=== PATIENT | male | born 1950 | race Caucasian/White ===

== ENCOUNTER → 2018-01-16 | Outpatient (CLI) | payer MEDICARE, BC ==
[2018-01-16 11:30] LABS: BLOOD UREA NITROGEN 38 mg/dl (7-20)
[2018-01-16 11:30] LABS: CREATININE 1.51 mg/dl (0.61-1.24)
[2018-01-16] MEDS: IODIXANOL LOCM 100 ML BTL (12:17)
[2018-01-16] MEDS: SOD CHLORIDE 0.9% 100 ML (12:17)
== END | disposition home or self-care (01) ==
LOC: LAB 09:34
DX: R10.9 Unspecified abdominal pain (principal)
CPT/HCPCS: 74178; 82565; 84520

== ENCOUNTER 2018-05-28 18:59 | Inpatient (IN) | payer MEDICARE, BC ==
[2018-05-28] MEDS: morphine 4 MG/ML VIAL IV ×2 (22:14→22:41)
[2018-05-28] MEDS: ONDANSETRON 4 MG INJ IV ×2 (22:14→22:41)
[2018-05-28] MEDS: SOD CHLORIDE 0.9% 1,000 ML IV (22:15)
[2018-05-28 23:20] LABS: ADD MAN DIFF? NO
[2018-05-28 23:30] LABS: WHITE BLOOD COUNT 15.7 10^3/ul (4.8-10.8)
[2018-05-28 23:30] LABS: BASOPHIL # 0.1 10^3/ul (0.0-0.1); BASOPHILS % 0.4 % (0.0-2.0); EOSINOPHILS # 0.8 10^3/ul (0.0-0.5); EOSINOPHILS % 5.4 % (0.0-7.0); HEMATOCRIT 48.4 % (42.0-52.0); HEMOGLOBIN 16.2 g/dl (14.0-18.0); LYMPHOCYTES # 1.6 10^3/ul (0.8-2.9); LYMPHOCYTES % 10.4 % (15.0-51.0); MEAN CORPUSCULAR HEMOGLOBIN 32.2 pg (29.0-33.0); MEAN CORPUSCULAR HGB CONC 33.5 g/dl (32.0-37.0); MEAN CORPUSCULAR VOLUME 96.2 fl (82.0-101.0); MEAN PLATELET VOLUME 10.7 fl (7.4-10.4); MONOCYTE # 1.2 10^3/ul (0.3-0.9); MONOCYTES % 7.5 % (0.0-11.0); NEUTROPHIL # 11.8 10^3/ul (1.6-7.5); NEUTROPHILS % 75.5 % (39.0-77.0); PLATELET COUNT 149 10^3/UL (140-415); RED BLOOD COUNT 5.03 10^6/ul (4.70-6.10); RED CELL DISTRIBUTION WIDTH 12.8 % (11.5-14.5)
[2018-05-28 23:45] LABS: LACTIC ACID 1.4 mmol/L (0.5-2.0)
[2018-05-28 23:47] LABS: ALANINE AMINOTRANSFERASE 31 IU/L (13-69); ALBUMIN 3.1 g/dl (3.3-4.9); ALBUMIN/GLOBULIN RATIO 0.81; ALKALINE PHOSPHATASE 121 IU/L (42-121); ANION GAP 15 (8-16); ASPARTATE AMINO TRANSFERASE 22 IU/L (15-46); BILIRUBIN,INDIRECT 0.5 mg/dl (0-1.1); BILIRUBIN,TOTAL 0.5 mg/dl (0.2-1.3); BLOOD UREA NITROGEN 40 mg/dl (7-20); CARBON DIOXIDE 24 mmol/L (21-31); CHLORIDE 103 mmol/L (97-110); CREATININE 1.75 mg/dl (0.61-1.24); GLUCOSE 131 mg/dl (70-220); LIPASE 63 U/L (23-300); POTASSIUM 4.3 mmol/L (3.5-5.1); SODIUM 138 mmol/L (135-144); TOTAL PROTEIN 6.9 g/dl (6.1-8.1)
[2018-05-29] LABS: TROPONIN-I < 0.012 ng/ml (0.000-0.120)
[2018-05-29 00:49] LABS: ADD UMIC YES; UR ASCORBIC ACID NEGATIVE (NEGATIVE); UR BACTERIA MODERATE /HPF (NONE SEEN); UR BILIRUBIN (Dip) NEGATIVE (NEGATIVE); UR BLOOD (Dip) 3+ mg/dL (NEGATIVE); UR CLARITY TURBID (CLEAR); UR COLOR YELLOW (YELLOW); UR GLUCOSE (Dip) 3+ mg/dL (NEGATIVE); UR KETONES (Dip) TRACE mg/dL (NEGATIVE); UR LEUKOCYTE ESTERASE (Dip) 2+ Leu/ul (NEGATIVE); UR NITRITE (Dip) NEGATIVE (NEGATIVE); UR NONSQUAMOUS EPITHELIAL CELL 2 /HPF (NONE SEEN); UR RBC > 182 /HPF (0-5); UR SPECIFIC GRAVITY (Dip) 1.018 (1.003-1.030); UR SQUAMOUS EPITHELIAL CELL FEW /HPF (FEW); UR TOTAL PROTEIN (Dip) 2+ mg/dl (NEGATIVE); UR UROBILINOGEN (Dip) NEGATIVE (NEGATIVE); UR WBC > 182 /HPF (0-5)
[2018-05-29] MEDS ORDERED: NACL 0.9% 3 ML SYG IV (02:00)
[2018-05-29] MEDS ORDERED: ACETAMINOPHEN 325 MG TAB PO (02:00)
[2018-05-29] MEDS ORDERED: BISACODYL (EC) 5 MG TAB PO (02:00)
[2018-05-29] MEDS: ACCU-CHEK XX (02:00)
[2018-05-29] MEDS ORDERED: DOCUSATE SODIUM 100 MG CAP PO (02:00)
[2018-05-29] MEDS ORDERED: GLUCOSE GEL 15 GRAM TUBE BUCCAL (02:30)
[2018-05-29] MEDS ORDERED: GLUCOSE GEL 15 GRAM TUBE PO ×2 (02:30)
[2018-05-29] MEDS ORDERED: GLUCAGON 1 MG INJ IM (02:30)
[2018-05-29] MEDS ORDERED: DEXTROSE 50% 50 ML SYRINGE IV ×2 (02:30)
[2018-05-29] MEDS: CEFTRIAXONE 2 GM/50 ML (PMX) 50 ML IVPB (03:01)
[2018-05-29] MEDS ORDERED: ALBUTEROL HFA 8 GM INHALER INH (04:00)
[2018-05-29 05:58] LABS: ADD MAN DIFF? NO
[2018-05-29 06:38] LABS: ALANINE AMINOTRANSFERASE 29 IU/L (13-69); ALBUMIN 3.1 g/dl (3.3-4.9); ALBUMIN/GLOBULIN RATIO 0.83; ALKALINE PHOSPHATASE 114 IU/L (42-121); ANION GAP 13 (8-16); ASPARTATE AMINO TRANSFERASE 24 IU/L (15-46); BILIRUBIN,INDIRECT 0.4 mg/dl (0-1.1); BILIRUBIN,TOTAL 0.4 mg/dl (0.2-1.3); BLOOD UREA NITROGEN 37 mg/dl (7-20); CARBON DIOXIDE 26 mmol/L (21-31); CHLORIDE 107 mmol/L (97-110); CHOL/HDL RATIO 3.7 RATIO; CHOLESTEROL 111 mg/dl (100-200); CREATININE 1.51 mg/dl (0.61-1.24); HDL CHOLESTEROL 30 mg/dl (31-75); LDL CHOLESTEROL,CALCULATED 64 mg/dl; MAGNESIUM 2.3 mg/dl (1.7-2.5); POTASSIUM 4.4 mmol/L (3.5-5.1); SODIUM 142 mmol/L (135-144); TOTAL PROTEIN 6.8 g/dl (6.1-8.1); TRIGLYCERIDES 85 mg/dl (0-149)
[2018-05-29 07:08] LABS: GLUCOSE 38 mg/dl (70-220)
[2018-05-29] MEDS: INSULIN ASPART [NOVOLOG] 3 ML PEN SC ×4 (07:21→21:00)
[2018-05-29 08:28] LABS: BASOPHIL # 0.1 10^3/ul (0.0-0.1); BASOPHILS % 0.4 % (0.0-2.0); EOSINOPHILS % 6.6 % (0.0-7.0); HEMATOCRIT 48.9 % (42.0-52.0); HEMOGLOBIN 15.9 g/dl (14.0-18.0); LYMPHOCYTES # 2.5 10^3/ul (0.8-2.9); LYMPHOCYTES % 16.7 % (15.0-51.0); MEAN CORPUSCULAR HEMOGLOBIN 31.2 pg (29.0-33.0); MEAN CORPUSCULAR HGB CONC 32.5 g/dl (32.0-37.0); MEAN CORPUSCULAR VOLUME 96.1 fl (82.0-101.0); MONOCYTE # 1.3 10^3/ul (0.3-0.9); MONOCYTES % 8.5 % (0.0-11.0); NEUTROPHIL # 10.2 10^3/ul (1.6-7.5); NEUTROPHILS % 67.3 % (39.0-77.0); PLATELET COUNT 149 10^3/UL (140-415); RED BLOOD COUNT 5.09 10^6/ul (4.70-6.10); RED CELL DISTRIBUTION WIDTH 12.8 % (11.5-14.5)
[2018-05-29 08:28] LABS: WHITE BLOOD COUNT 15.1 10^3/ul (4.8-10.8)
[2018-05-29] MEDS: BENAZEPRIL 40 MG TAB PO (08:42)
[2018-05-29] MEDS: INSULIN GLARGINE [LANTus] (100 UNITS/ML) SYG SC (08:44)
[2018-05-29 11:50] LABS: HEMOGLOBIN A1C 7.9 % (0-5.9)
[2018-05-29] MEDS: SOD CHLORIDE 0.9% 1,000 ML IV (16:51)
[2018-05-29] MEDS: AMITRIPTYLINE 25 MG TAB PO (21:00)
[2018-05-29] MEDS: MONTELUKAST 10 MG TAB PO (21:24)
[2018-05-29] MEDS: ATORVASTATIN 10 MG TAB PO (21:25)
[2018-05-30] MEDS: ACCU-CHEK XX (02:00)
[2018-05-30] MEDS: CEFTRIAXONE 2 GM/50 ML (PMX) 50 ML IVPB ×2 (02:46→21:18)
[2018-05-30] MEDS: INSULIN ASPART [NOVOLOG] 3 ML PEN SC ×4 (07:57→21:43)
[2018-05-30] MEDS: BENAZEPRIL 40 MG TAB PO (09:13)
[2018-05-30] MEDS: INSULIN GLARGINE [LANTus] (100 UNITS/ML) SYG SC (09:38)
[2018-05-30 10:16] LABS: ADD MAN DIFF? NO
[2018-05-30 10:22] LABS: WHITE BLOOD COUNT 13.7 10^3/ul (4.8-10.8)
[2018-05-30 10:22] LABS: BASOPHIL # 0.1 10^3/ul (0.0-0.1); BASOPHILS % 0.4 % (0.0-2.0); HEMATOCRIT 45.8 % (42.0-52.0); LYMPHOCYTES # 1.8 10^3/ul (0.8-2.9); LYMPHOCYTES % 12.9 % (15.0-51.0); MEAN CORPUSCULAR HEMOGLOBIN 31.6 pg (29.0-33.0); MEAN CORPUSCULAR HGB CONC 32.8 g/dl (32.0-37.0); MEAN CORPUSCULAR VOLUME 96.6 fl (82.0-101.0); MEAN PLATELET VOLUME 10.4 fl (7.4-10.4); MONOCYTE # 1.2 10^3/ul (0.3-0.9); MONOCYTES % 8.4 % (0.0-11.0); NEUTROPHIL # 9.7 10^3/ul (1.6-7.5); NEUTROPHILS % 70.8 % (39.0-77.0); PLATELET COUNT 157 10^3/UL (140-415); RED BLOOD COUNT 4.74 10^6/ul (4.70-6.10); RED CELL DISTRIBUTION WIDTH 12.6 % (11.5-14.5)
[2018-05-30 10:43] LABS: ANION GAP 13 (8-16); BLOOD UREA NITROGEN 35 mg/dl (7-20); CALCIUM 9.1 mg/dl (8.4-10.2); CARBON DIOXIDE 27 mmol/L (21-31); CHLORIDE 106 mmol/L (97-110); CREATININE 1.42 mg/dl (0.61-1.24); GLUCOSE 113 mg/dl (70-220); MAGNESIUM 2.1 mg/dl (1.7-2.5); SODIUM 141 mmol/L (135-144)
[2018-05-30] MEDS: ATORVASTATIN 10 MG TAB PO (21:18)
[2018-05-30] MEDS: MONTELUKAST 10 MG TAB PO (21:18)
[2018-05-30] MEDS: AMITRIPTYLINE 25 MG TAB PO (21:18)
[2018-05-31] MEDS: ACCU-CHEK XX (01:45)
[2018-05-31 05:39] LABS: ADD MAN DIFF? NO
[2018-05-31 05:47] LABS: BASOPHIL # 0.1 10^3/ul (0.0-0.1); BASOPHILS % 0.5 % (0.0-2.0); EOSINOPHILS # 1.2 10^3/ul (0.0-0.5); EOSINOPHILS % 10.2 % (0.0-7.0); HEMATOCRIT 45.4 % (42.0-52.0); HEMOGLOBIN 14.9 g/dl (14.0-18.0); LYMPHOCYTES # 1.6 10^3/ul (0.8-2.9); LYMPHOCYTES % 14.1 % (15.0-51.0); MEAN CORPUSCULAR HEMOGLOBIN 31.8 pg (29.0-33.0); MEAN CORPUSCULAR HGB CONC 32.8 g/dl (32.0-37.0); MEAN PLATELET VOLUME 10.4 fl (7.4-10.4); MONOCYTE # 0.9 10^3/ul (0.3-0.9); MONOCYTES % 7.8 % (0.0-11.0); NEUTROPHIL # 7.5 10^3/ul (1.6-7.5); NEUTROPHILS % 66.7 % (39.0-77.0); PLATELET COUNT 151 10^3/UL (140-415); RED BLOOD COUNT 4.68 10^6/ul (4.70-6.10); RED CELL DISTRIBUTION WIDTH 12.6 % (11.5-14.5)
[2018-05-31 05:47] LABS: WHITE BLOOD COUNT 11.3 10^3/ul (4.8-10.8)
[2018-05-31 06:04] LABS: ANION GAP 11 (8-16); BLOOD UREA NITROGEN 34 mg/dl (7-20); CALCIUM 9.1 mg/dl (8.4-10.2); CARBON DIOXIDE 28 mmol/L (21-31); CHLORIDE 106 mmol/L (97-110); CREATININE 1.35 mg/dl (0.61-1.24); GLUCOSE 166 mg/dl (70-220); POTASSIUM 4.9 mmol/L (3.5-5.1); SODIUM 140 mmol/L (135-144)
[2018-05-31] MEDS: INSULIN ASPART [NOVOLOG] 3 ML PEN SC ×4 (07:39→20:49)
[2018-05-31] MEDS: INSULIN GLARGINE [LANTus] (100 UNITS/ML) SYG SC (07:39)
[2018-05-31] MEDS: BENAZEPRIL 40 MG TAB PO (08:11)
[2018-05-31] MEDS: METOPROLOL 25 MG TAB PO ×2 (11:37→20:33)
[2018-05-31] MEDS ORDERED: DILTIAZEM 25 MG INJ IV (12:00)
[2018-05-31] MEDS: DIGOXIN 500 MCG INJ IV ×2 (12:21→17:04)
[2018-05-31] MEDS: NA PHOSPHATE/BIPHOS 133 ML ENEMA PR (14:30)
[2018-05-31 14:51] LABS: TROPONIN-I < 0.012 ng/ml (0.000-0.120)
[2018-05-31] MEDS: POLYETHYLENE GLYCOL 17 GM PACKET PO (14:52)
[2018-05-31] MEDS: PSYLLIUM 28% PACKET PO (15:30)
[2018-05-31 19:12] LABS: TROPONIN-I < 0.012 ng/ml (0.000-0.120)
[2018-05-31] MEDS: ATORVASTATIN 10 MG TAB PO (20:26)
[2018-05-31] MEDS: MONTELUKAST 10 MG TAB PO (20:26)
[2018-05-31] MEDS: DOCUSATE SODIUM 100 MG CAP PO (20:26)
[2018-05-31] MEDS: APIXABAN 5 MG TABLET PO (20:27)
[2018-05-31] MEDS: AMITRIPTYLINE 25 MG TAB PO (20:27)
[2018-05-31] MEDS ORDERED: DOCUSATE SODIUM 100 MG CAP PO (21:00)
[2018-05-31] MEDS: CEFTRIAXONE 2 GM/50 ML (PMX) 50 ML IVPB (22:44)
[2018-06-01] MEDS: ACCU-CHEK XX (02:36)
[2018-06-01 06:19] LABS: ANION GAP 12 (8-16); BLOOD UREA NITROGEN 39 mg/dl (7-20); CALCIUM 8.9 mg/dl (8.4-10.2); CARBON DIOXIDE 26 mmol/L (21-31); CHLORIDE 108 mmol/L (97-110); CREATININE 1.43 mg/dl (0.61-1.24); GLUCOSE 135 mg/dl (70-220); MAGNESIUM 2.2 mg/dl (1.7-2.5); POTASSIUM 4.8 mmol/L (3.5-5.1); SODIUM 141 mmol/L (135-144)
[2018-06-01] MEDS: INSULIN ASPART [NOVOLOG] 3 ML PEN SC ×4 (07:57→20:43)
[2018-06-01] MEDS: DOCUSATE SODIUM 100 MG CAP PO ×2 (08:25→21:00)
[2018-06-01] MEDS: METOPROLOL 25 MG TAB PO ×2 (08:25→20:17)
[2018-06-01] MEDS: APIXABAN 5 MG TABLET PO ×2 (08:25→20:16)
[2018-06-01] MEDS: BENAZEPRIL 10 MG TAB PO (08:26)
[2018-06-01] MEDS: POLYETHYLENE GLYCOL 17 GM PACKET PO (08:31)
[2018-06-01] MEDS: INSULIN GLARGINE [LANTus] (100 UNITS/ML) SYG SC (08:31)
[2018-06-01] MEDS: PSYLLIUM 28% PACKET PO (08:31)
[2018-06-01] MEDS: BISACODYL (EC) 5 MG TAB PO (09:28)
[2018-06-01] MEDS ORDERED: BISACODYL (EC) 5 MG TAB PO (09:30)
[2018-06-01] MEDS: LINAGLIPTIN 5 MG TABLET PO (10:00)
[2018-06-01] MEDS: FOSFOMYCIN 3 GM PACKET PO (11:30)
[2018-06-01] MEDS: AMITRIPTYLINE 25 MG TAB PO (20:16)
[2018-06-01] MEDS: MONTELUKAST 10 MG TAB PO (20:17)
[2018-06-01] MEDS: ATORVASTATIN 10 MG TAB PO (20:17)
[2018-06-01] MEDS: CEFTRIAXONE 2 GM/50 ML (PMX) 50 ML IVPB (23:12)
[2018-06-02] MEDS: ACCU-CHEK XX (02:13)
[2018-06-02 06:08] LABS: ADD MAN DIFF? NO
[2018-06-02 06:13] LABS: BASOPHIL # 0.1 10^3/ul (0.0-0.1); BASOPHILS % 0.6 % (0.0-2.0); EOSINOPHILS # 1.1 10^3/ul (0.0-0.5); EOSINOPHILS % 9.7 % (0.0-7.0); HEMATOCRIT 45.7 % (42.0-52.0); LYMPHOCYTES # 2.5 10^3/ul (0.8-2.9); LYMPHOCYTES % 21.8 % (15.0-51.0); MEAN CORPUSCULAR HEMOGLOBIN 31.6 pg (29.0-33.0); MEAN CORPUSCULAR HGB CONC 32.8 g/dl (32.0-37.0); MEAN CORPUSCULAR VOLUME 96.4 fl (82.0-101.0); MEAN PLATELET VOLUME 10.2 fl (7.4-10.4); MONOCYTES % 9.3 % (0.0-11.0); NEUTROPHIL # 6.4 10^3/ul (1.6-7.5); PLATELET COUNT 159 10^3/UL (140-415); RED BLOOD COUNT 4.74 10^6/ul (4.70-6.10); RED CELL DISTRIBUTION WIDTH 12.6 % (11.5-14.5)
[2018-06-02 06:13] LABS: WHITE BLOOD COUNT 11.2 10^3/ul (4.8-10.8)
[2018-06-02 06:50] LABS: ANION GAP 13 (8-16); BLOOD UREA NITROGEN 44 mg/dl (7-20); CALCIUM 8.9 mg/dl (8.4-10.2); CARBON DIOXIDE 27 mmol/L (21-31); CHLORIDE 106 mmol/L (97-110); CREATININE 1.71 mg/dl (0.61-1.24); GLUCOSE 126 mg/dl (70-220); POTASSIUM 5.2 mmol/L (3.5-5.1); SODIUM 141 mmol/L (135-144)
[2018-06-02] MEDS: INSULIN ASPART [NOVOLOG] 3 ML PEN SC ×4 (07:59→22:02)
[2018-06-02] MEDS: LINAGLIPTIN 5 MG TABLET PO (08:00)
[2018-06-02] MEDS: APIXABAN 5 MG TABLET PO ×2 (08:01→21:49)
[2018-06-02] MEDS: BENAZEPRIL 10 MG TAB PO (08:01)
[2018-06-02] MEDS: METOPROLOL 25 MG TAB PO ×2 (08:02→21:49)
[2018-06-02] MEDS: INSULIN GLARGINE [LANTus] (100 UNITS/ML) SYG SC (08:14)
[2018-06-02] MEDS: PSYLLIUM 28% PACKET PO (09:00)
[2018-06-02] MEDS: POLYETHYLENE GLYCOL 17 GM PACKET PO (09:00)
[2018-06-02] MEDS: BISACODYL (EC) 5 MG TAB PO (09:00)
[2018-06-02] MEDS: DOCUSATE SODIUM 100 MG CAP PO ×3 (09:00→21:49)
[2018-06-02] MEDS: LACTULOSE 30ML CUP PO (10:30)
[2018-06-02] MEDS: TERBINAFINE 250 MG TAB PO ×2 (11:37→21:49)
[2018-06-02] MEDS: LACTATED RINGER'S 500 ML IV (11:37)
[2018-06-02] MEDS: FLUTICASONE/VILANTEROL 200-25 INH DEVICE INH (12:17)
[2018-06-02] MEDS ORDERED: DESIPRAMINE 25 MG TAB PO (21:00)
[2018-06-02] MEDS: MONTELUKAST 10 MG TAB PO (21:49)
[2018-06-02] MEDS: ATORVASTATIN 40 MG TAB PO (21:49)
[2018-06-02] MEDS: CEFTRIAXONE 2 GM/50 ML (PMX) 50 ML IVPB (21:50)
[2018-06-02] MEDS: NORTRIPTYLINE 25 MG CAP PO (21:50)
[2018-06-03] MEDS: ACCU-CHEK XX (02:28)
[2018-06-03] MEDS: INSULIN ASPART [NOVOLOG] 3 ML PEN SC ×5 (03:55→22:01)
[2018-06-03 06:02] LABS: ADD MAN DIFF? NO
[2018-06-03 06:05] LABS: WHITE BLOOD COUNT 9.9 10^3/ul (4.8-10.8)
[2018-06-03 06:05] LABS: BASOPHIL # 0.1 10^3/ul (0.0-0.1); BASOPHILS % 0.6 % (0.0-2.0); EOSINOPHILS # 1.1 10^3/ul (0.0-0.5); HEMOGLOBIN 14.6 g/dl (14.0-18.0); LYMPHOCYTES # 2.3 10^3/ul (0.8-2.9); LYMPHOCYTES % 22.7 % (15.0-51.0); MEAN CORPUSCULAR HEMOGLOBIN 31.5 pg (29.0-33.0); MEAN CORPUSCULAR HGB CONC 32.4 g/dl (32.0-37.0); MEAN CORPUSCULAR VOLUME 97.2 fl (82.0-101.0); MEAN PLATELET VOLUME 10.3 fl (7.4-10.4); MONOCYTES % 10.3 % (0.0-11.0); NEUTROPHIL # 5.3 10^3/ul (1.6-7.5); NEUTROPHILS % 53.5 % (39.0-77.0); PLATELET COUNT 179 10^3/UL (140-415); RED BLOOD COUNT 4.63 10^6/ul (4.70-6.10); RED CELL DISTRIBUTION WIDTH 12.6 % (11.5-14.5)
[2018-06-03 06:32] LABS: ANION GAP 9 (8-16); BLOOD UREA NITROGEN 47 mg/dl (7-20); CALCIUM 9.3 mg/dl (8.4-10.2); CARBON DIOXIDE 29 mmol/L (21-31); CHLORIDE 109 mmol/L (97-110); CREATININE 1.63 mg/dl (0.61-1.24); GLUCOSE 178 mg/dl (70-220); POTASSIUM 5.8 mmol/L (3.5-5.1); SODIUM 141 mmol/L (135-144)
[2018-06-03] MEDS: INSULIN GLARGINE [LANTus] (100 UNITS/ML) SYG SC ×2 (08:00)
[2018-06-03] MEDS: LINAGLIPTIN 5 MG TABLET PO (08:14)
[2018-06-03] MEDS: APIXABAN 5 MG TABLET PO ×2 (08:14→21:39)
[2018-06-03] MEDS: TERBINAFINE 250 MG TAB PO ×2 (08:14→21:39)
[2018-06-03] MEDS: LOSARTAN 25 MG TAB PO (08:15)
[2018-06-03] MEDS: METOPROLOL 25 MG TAB PO ×2 (08:16→21:00)
[2018-06-03] MEDS: FLUTICASONE/VILANTEROL 200-25 INH DEVICE INH (08:20)
[2018-06-03] MEDS: PSYLLIUM 28% PACKET PO (09:00)
[2018-06-03] MEDS: BISACODYL (EC) 5 MG TAB PO (09:00)
[2018-06-03] MEDS: DOCUSATE SODIUM 100 MG CAP PO ×2 (09:00→21:00)
[2018-06-03] MEDS: POLYETHYLENE GLYCOL 17 GM PACKET PO (09:00)
[2018-06-03] MEDS ORDERED: NA POLYST SULFON 15 GM/60 ML BTL PO (09:30)
[2018-06-03] MEDS: NA POLYST SULFON 15 GM/60 ML BTL PO (10:30)
[2018-06-03] MEDS: LACTATED RINGER'S 500 ML IV (11:46)
[2018-06-03] MEDS: MONTELUKAST 10 MG TAB PO (21:39)
[2018-06-03] MEDS: FUROSEMIDE 20 MG INJ IV (21:39)
[2018-06-03] MEDS: ATORVASTATIN 40 MG TAB PO (21:39)
[2018-06-03] MEDS: NORTRIPTYLINE 25 MG CAP PO (21:39)
[2018-06-03] MEDS: CEFTRIAXONE 2 GM/50 ML (PMX) 50 ML IVPB (22:03)
[2018-06-04] MEDS: ACCU-CHEK XX (02:00)
[2018-06-04] MEDS: FLUTICASONE/VILANTEROL 200-25 INH DEVICE INH (08:44)
[2018-06-04] MEDS: BISACODYL (EC) 5 MG TAB PO (08:44)
[2018-06-04] MEDS: TERBINAFINE 250 MG TAB PO ×2 (08:44→21:40)
[2018-06-04] MEDS: PSYLLIUM 28% PACKET PO (08:44)
[2018-06-04] MEDS: LINAGLIPTIN 5 MG TABLET PO (08:44)
[2018-06-04] MEDS: DOCUSATE SODIUM 100 MG CAP PO ×2 (08:44→21:00)
[2018-06-04] MEDS: APIXABAN 5 MG TABLET PO ×2 (08:44→21:42)
[2018-06-04] MEDS: METOPROLOL 25 MG TAB PO ×2 (08:45→21:41)
[2018-06-04] MEDS: INSULIN GLARGINE [LANTus] (100 UNITS/ML) SYG SC (08:50)
[2018-06-04] MEDS: INSULIN ASPART [NOVOLOG] 3 ML PEN SC ×4 (08:50→21:55)
[2018-06-04] MEDS: POLYETHYLENE GLYCOL 17 GM PACKET PO (08:53)
[2018-06-04 13:15] LABS: ADD MAN DIFF? NO
[2018-06-04 13:22] LABS: WHITE BLOOD COUNT 9.8 10^3/ul (4.8-10.8)
[2018-06-04 13:22] LABS: BASOPHIL # 0.1 10^3/ul (0.0-0.1); BASOPHILS % 0.6 % (0.0-2.0); EOSINOPHILS # 1.1 10^3/ul (0.0-0.5); EOSINOPHILS % 11.7 % (0.0-7.0); HEMATOCRIT 45.9 % (42.0-52.0); HEMOGLOBIN 14.9 g/dl (14.0-18.0); LYMPHOCYTES # 1.7 10^3/ul (0.8-2.9); LYMPHOCYTES % 17.3 % (15.0-51.0); MEAN CORPUSCULAR HEMOGLOBIN 31.4 pg (29.0-33.0); MEAN CORPUSCULAR HGB CONC 32.5 g/dl (32.0-37.0); MEAN CORPUSCULAR VOLUME 96.8 fl (82.0-101.0); MEAN PLATELET VOLUME 10.2 fl (7.4-10.4); MONOCYTE # 0.8 10^3/ul (0.3-0.9); MONOCYTES % 8.2 % (0.0-11.0); NEUTROPHIL # 5.9 10^3/ul (1.6-7.5); PLATELET COUNT 181 10^3/UL (140-415); RED BLOOD COUNT 4.74 10^6/ul (4.70-6.10); RED CELL DISTRIBUTION WIDTH 12.3 % (11.5-14.5)
[2018-06-04 14:01] LABS: ANION GAP 12 (8-16); BLOOD UREA NITROGEN 52 mg/dl (7-20); CALCIUM 8.9 mg/dl (8.4-10.2); CARBON DIOXIDE 28 mmol/L (21-31); CHLORIDE 104 mmol/L (97-110); CREATININE 1.49 mg/dl (0.61-1.24); GLUCOSE 259 mg/dl (70-220); POTASSIUM 5.3 mmol/L (3.5-5.1); SODIUM 139 mmol/L (135-144)
[2018-06-04] MEDS: MONTELUKAST 10 MG TAB PO (21:40)
[2018-06-04] MEDS: ATORVASTATIN 40 MG TAB PO (21:41)
[2018-06-04] MEDS: NORTRIPTYLINE 25 MG CAP PO (21:42)
[2018-06-04] MEDS: CEFTRIAXONE 2 GM/50 ML (PMX) 50 ML IVPB (23:31)
[2018-06-05] MEDS: ACCU-CHEK XX (02:10)
[2018-06-05] MEDS: INSULIN ASPART [NOVOLOG] 3 ML PEN SC ×3 (08:00→17:38)
[2018-06-05] MEDS: POLYETHYLENE GLYCOL 17 GM PACKET PO (08:44)
[2018-06-05] MEDS: FLUTICASONE/VILANTEROL 200-25 INH DEVICE INH (08:44)
[2018-06-05] MEDS: BISACODYL (EC) 5 MG TAB PO (08:45)
[2018-06-05] MEDS: TERBINAFINE 250 MG TAB PO (08:45)
[2018-06-05] MEDS: LINAGLIPTIN 5 MG TABLET PO (08:46)
[2018-06-05] MEDS: METOPROLOL 25 MG TAB PO (08:46)
[2018-06-05] MEDS: DOCUSATE SODIUM 100 MG CAP PO (08:46)
[2018-06-05] MEDS: APIXABAN 5 MG TABLET PO (08:47)
[2018-06-05] MEDS: INSULIN GLARGINE [LANTus] (100 UNITS/ML) SYG SC (08:52)
[2018-06-05] MEDS: PSYLLIUM 28% PACKET PO (08:59)
[2018-06-05 11:36] LABS: ADD MAN DIFF? NO
[2018-06-05 11:39] LABS: BASOPHIL # 0.1 10^3/ul (0.0-0.1); BASOPHILS % 0.6 % (0.0-2.0); EOSINOPHILS # 1.2 10^3/ul (0.0-0.5); EOSINOPHILS % 10.2 % (0.0-7.0); HEMATOCRIT 44.6 % (42.0-52.0); HEMOGLOBIN 14.5 g/dl (14.0-18.0); LYMPHOCYTES # 2.1 10^3/ul (0.8-2.9); LYMPHOCYTES % 17.9 % (15.0-51.0); MEAN CORPUSCULAR HEMOGLOBIN 31.5 pg (29.0-33.0); MEAN CORPUSCULAR HGB CONC 32.5 g/dl (32.0-37.0); MEAN PLATELET VOLUME 10.4 fl (7.4-10.4); MONOCYTE # 0.9 10^3/ul (0.3-0.9); MONOCYTES % 7.7 % (0.0-11.0); NEUTROPHIL # 7.2 10^3/ul (1.6-7.5); NEUTROPHILS % 62.3 % (39.0-77.0); PLATELET COUNT 184 10^3/UL (140-415); RED CELL DISTRIBUTION WIDTH 12.5 % (11.5-14.5)
[2018-06-05 11:39] LABS: WHITE BLOOD COUNT 11.5 10^3/ul (4.8-10.8)
[2018-06-05 12:02] LABS: BLOOD UREA NITROGEN 48 mg/dl (7-20); CARBON DIOXIDE 29 mmol/L (21-31); CHLORIDE 105 mmol/L (97-110); CREATININE 1.46 mg/dl (0.61-1.24); GLUCOSE 226 mg/dl (70-220); SODIUM 139 mmol/L (135-144)
[2018-06-05 12:11] LABS: ANION GAP 10 (8-16)
== END 2018-06-05 18:11 | disposition home or self-care (01) | DRG 872 ==
LOC: 6WM 05-30 22:24 → E/R 18:59 → 6WM 05-29 01:10
PROVIDERS: Family Medicine
DX: A41.9 Sepsis, unspecified organism (principal); N17.9 Acute kidney failure, unspecified; N30.90 Cystitis, unspecified without hematuria; Z68.43 Body mass index [BMI] 50.0-59.9, adult; I48.92 Unspecified atrial flutter; E66.01 Morbid (severe) obesity due to excess calories; I48.0 Paroxysmal atrial fibrillation; I12.9 Hypertensive chronic kidney disease with stage 1 through stage 4 chronic kidney disease, or unspecified chronic kidney disease; E11.21 Type 2 diabetes mellitus with diabetic nephropathy; K46.9 Unspecified abdominal hernia without obstruction or gangrene; E78.5 Hyperlipidemia, unspecified; R65.20 Severe sepsis without septic shock; B95.1 Streptococcus, group B, as the cause of diseases classified elsewhere; F32.9 Major depressive disorder, single episode, unspecified; N18.2 Chronic kidney disease, stage 2 (mild); B35.1 Tinea unguium; K59.00 Constipation, unspecified; E87.5 Hyperkalemia; E11.22 Type 2 diabetes mellitus with diabetic chronic kidney disease; Z85.038 Personal history of other malignant neoplasm of large intestine; Z79.4 Long term (current) use of insulin
CPT/HCPCS: 36415; 71045; 74176; 76775; 80048; 80053; 80061; 81001; 82962; 83036; 83605; 83690; 83735; 84443; 84484; 85025; 87086; 93005; 93306; 99285-25